=== PATIENT | male | born 1960 | race African-American/Black ===

== ENCOUNTER 2017-02-18 04:09 | Emergency (ER) | payer OTHER ==
--- NOTE | ~2017-02-18 | CR72 ---
[facility] A Service of [facility] / [facility] RADIOLOGY TEXT RESULTS PATIENT: AME GONZALES LOCATION: [facility] : 64 UNIT #: [id number] AGE: [address]: Agapito Puga MD SEX: M ORDER DR: [id number] [address] [address] [id number] E MR#: [id number] Acc #: [id number] NAME: AME GONZALES : 1960 SEX: M STUDY DATE/TIME: 02/18/2017 3:57 UNIT: [facility] ROOM: STUDY DESCRIPTION: CR Chest Single View Portable Attending Physician: Agapito Puga M.D. Ordering Physician: Agapito Puga M.D. Primary Care Physician: [facility] MEDICAL IMAGING REPORT This report is preliminary unless electronic signature is present EXAM Portable chest, 02/18/2017 INDICATION COPD. PROCEDURE Frontal view chest. COMPARISON 12/31/2016 FINDINGS Heart size unchanged. No dense consolidation. No pleural fluid. No pneumothorax. IMPRESSION No active process. Dictated by... Jam Lizama M.D. THIS IS AN ELECTRONICALLY VERIFIED REPORT Jam Lizama M.D. at 02/18/2017 10:14 PM EED/alen TD: 02/18/2017 05:17 JOB #: [id number] MEDICAL IMAGING REPORT [facility] A Service of [facility] / [facility] RADIOLOGY TEXT RESULTS PATIENT: AME GONZALES LOCATION: [facility] : 64 UNIT #: [id number] AGE: [address]: Agapito Puga MD SEX: M ORDER DR: Page 1 of 1 COPY
--- NOTE | ~2017-02-18 | EKG ---
PATIENT: AME GONZALES UNIT #: [id number] Ventricular Rate: 76 BPM Atrial Rate: 76 BPM P-R Interval: 162 ms QRS Duration: 100 ms Q-T Interval: 386 ms QTC Calculation(Bezet): 434 ms P Sen[place]: 53 degrees Calculated R [place]eca: 50 degrees Calculated T [place]: 25 degrees Diagnosis Line: Diagnosis Line: Diagnosis Line: Normal sinus rhythm Diagnosis Line: Normal ECG Diagnosis Line: No previous ECGs available Diagnosis Line: Confirmed by RUBI LINDSAY MD ([id number]) on 02/18/2017 Diagnosis Line: 11:28:38 PM INTERPRETING MD: NEFTALI JO
--- NOTE | ~2017-02-18 | CT52 ---
[facility] A Service of [facility] & [facility] RADIOLOGY TEXT RESULTS PATIENT: AME GONZALES LOCATION: [facility] : 64 UNIT #: [id number] AGE: [address]: Agapito Puga MD SEX: M ORDER DR: [id number] [facility] [address] [place], [place] [address] [id number] E MR#: [id number] Acc #: [id number] NAME: AME OGNZALES : 1960 SEX: M STUDY DATE/TIME: 02/18/2017 4:37 UNIT: [facility] ROOM: STUDY DESCRIPTION: CT Cervical Spine Wo Cont Attending Physician: Agapito Puga M.D. Ordering Physician: Agapito Puga M.D. Primary Care Physician: [facility] MEDICAL IMAGING REPORT This report is preliminary unless electronic signature is present EXAM CT cervical spine without contrast INDICATIONS Syncope and a fall tonight. Left-sided neck pain. PROCEDURE Unenhanced CT cervical spine COMPARISON 12/31/2016 FINDINGS Cervical body height and alignment is stable. Multilevel degenerative disc disease and facet arthrosis. The craniocervical junction and dens are intact. No acute fracture. Varying degrees of central canal neural foraminal narrowing. IMPRESSION No acute findings. Multilevel degenerative change. Dictated by... Jam Lizama M.D. THIS IS AN ELECTRONICALLY VERIFIED REPORT Jam Lizama M.D. at 02/18/2017 10:15 PM Robyn TD: 02/18/2017 06:43 JOB #: [id number] MEDICAL IMAGING REPORT Page 1 of 1 COPY
[~2017-02-18 04:09] MED LIST: ALBUTEROL17 GM INH; FLEXERIL10 M1 PO; IBUPROFEN800 MG PO; LORTAB 10-5001 EACH PO; LORTAB 7.51 TAB; METFORMIN HCL500 M1 PO; NAPROSYN500 MG PO; PRILOSEC PO; STOMACH PILL
[2017-02-18 04:29] LABS: INFLUENZA A NEG (NEG); INFLUENZA B NEG (NEG)
[2017-02-18 04:43] LABS: BASOPHIL% 0.6 % (0-2.5); DIFF IND NO; EOSINOPHIL# 0.1 X10e3 (0-0.7); EOSINOPHIL% 2.2 % (0.0-7.0); HEMATOCRIT 41.2 % (38.0-50.0); HEMOGLOBIN 13.3 gm/dL (13.0-16.0); LYMPHOCYTE# 2.3 X10e3 (1.0-3.5); LYMPHOCYTE% 47.3 % (17.0-45.0); MEAN CELL VOLUME 81.5 FL (83-96); MEAN CORPUSCULAR HEMOGLOBIN 26.2 PG (28-34); MEAN CORPUSCULAR HGB CONC 32.2 g/dL (30-36); MEAN PLATELET VOLUME 7.6 FL (6.5-11.5); MONOCYTE# 0.5 X10e3 (0-1.0); MONOCYTE% 10.5 % (3.0-12.0); NEUTROPHIL# 1.9 X10e3 (1.5-7.1); NEUTROPHIL% 39.4 % (40-75); PLATELET COUNT 222 X10e3 (140-420); RED BLOOD COUNT 5.06 X10e (3.90-5.60); RED CELL DISTRIBUTION WIDTH 13.7 % (11.0-15.5); WHITE BLOOD COUNT 4.9 X10e3 (4.0-10.5)
[2017-02-18 05:00] LABS: ALBUMIN SERUM 3.8 g/dL (3.5-5.0); ALKALINE PHOSPHATASE 127 U/L (32-92); ALT (SGPT) 106 U/L (10-40); AST (SGOT) 48 U/L (10-42); BILIRUBIN, DIRECT <0.1 mg/dL (0.0-0.2); BILIRUBIN,INDIRECT 0.4 mg/dL (0.0-0.9); BILIRUBIN,TOTAL 0.5 mg/dL (0.2-2.0); BLOOD UREA NITROGEN 13 mg/dL (9-23); BUN/CREATININE RATIO 14.44; CALCIUM SERUM 8.7 mg/dL (8.4-10.2); CARBON DIOXIDE 24 mmol/L (22-31); CHLORIDE 102 mmol/L (100-111); CREATININE SERUM 0.9 mg/dL (0.6-1.4); GLOM FILT RATE Estimated 111.8 mL/min (>60); GLUCOSE FASTING 315 mg/dL (70-110); PROTEIN TOTAL SERUM 6.8 g/dL (6.0-8.3); SODIUM 133 mmol/L (135-145)
== END 2017-02-18 06:50 | disposition home or self-care (01) ==
LOC: CED 04:09
PROVIDERS: Emergency Medicine
DX: S16.1XXA Strain of muscle, fascia and tendon at neck level, initial encounter (principal); R55 Syncope and collapse; E11.65 Type 2 diabetes mellitus with hyperglycemia; I10 Essential (primary) hypertension; Z79.899 Other long term (current) drug therapy; W18.30XA Fall on same level, unspecified, initial encounter; Y92.009 Unspecified place in unspecified non-institutional (private) residence as the place of occurrence of the external cause
CPT/HCPCS: 36415; 71010; 72125; 80048; 80076; 85025; 87804; 93005; 96360; 96361; 99284